=== PATIENT | female | born 1985 | race African-American/Black ===

== ENCOUNTER 2023-11-28 21:07 | Emergency (ER) | payer MEDICAID ==
[~2023-11-28] VITALS: Ht 167.6 cm; Wt 70.0 kg
[2023-11-28 21:16] VITALS: O2SAT 99
[2023-11-28] MEDS ORDERED: CEPH500C2 MT (23:11)
[2023-11-28] MEDS ORDERED: DIPH25CA83 MT (23:11)
[2023-11-28 23:20] VITALS: BP 126/80; PULSE 69; RESP 18; TEMP 36.94740; O2SAT 99
== END 2023-11-28 23:26 | disposition home or self-care (01) ==
LOC: ER 21:07
DX: L03.113 Cellulitis of right upper limb (principal)
CPT/HCPCS: 99283